=== PATIENT | male | born 1990 | race Caucasian/White ===

== ENCOUNTER 2019-09-14 23:34 | Emergency (ER) | payer BC, MEDICAID ==
[~2019-09-14] VITALS: Ht 185.4 cm; Wt 72.7 kg
[~2019-09-14 23:34] MED LIST: METH500T6 PO
[2019-09-15] MEDS ORDERED: OLANZapine 2.5MG tablet PO STA (00:15)
[2019-09-15] MEDS ORDERED: LORazepam 2 mg/ml vial IM ONE (00:15)
--- NOTE | 2019-09-15 00:19 | NUR ---
PT GOT UP AND WALKED OUT OF ROOM AND HEADED TOWARD THE DOOR - ASKED PT TO RETURN TO ROOM AND TOLD HIM THAT WE WANTED TO HELP HIM AND THAT WE HAD MEDICATIONS FOR HIM. HE APPEARS PARANOID AND IS LOOKING OVER HIS SHOULDER AND HAS JERKY RAPID MOVEMENTS. MD AWARE THAT PT WANTS TO ELOPE. PT WAS APPROACHED BY SECURITY AND AGREES TO COME BACK TO ROOM FOR CARE. MEDICATIONS HAVE BEEN ORDERED AND WILL BE ADMINISTERED TERESA.
[2019-09-15 01:08] LABS: BASOPHILS # (AUTO) 0.1 X10'3 (0-0.2); BASOPHILS % (AUTO) 0.5 % (0-1); EOSINOPHILS # (AUTO) 0.1 X10'3 (0-0.9); EOSINOPHILS % (AUTO) 0.4 % (0-6); HEMATOCRIT 48.6 % (42.0-52.0); HEMOGLOBIN 16.1 g/dl (14.0-17.9); LYMPHOCYTES # (AUTO) 1.7 X10'3 (1.1-4.8); LYMPHOCYTES % (AUTO) 12.5 % (21-51); MEAN CORPUSCULAR HEMOGLOBIN 30.6 PG (27.0-31.0); MEAN CORPUSCULAR HGB CONC 33.2 g/dL (33.0-36.5); MEAN CORPUSCULAR VOLUME 92.1 FL (78-98); MEAN PLATELET VOLUME 7.4 FL (7.4-10.4); MONOCYTES # (AUTO) 1.2 X10'3 (0-0.9); MONOCYTES % (AUTO) 8.9 % (2-12); NEUTROPHILS # (AUTO) 10.2 X10'3 (1.8-7.7); NEUTROPHILS % (AUTO) 77.7 % (42-75); PLATELET COUNT 263 X10'3 (140-440); RED BLOOD COUNT 5.28 X10'6 (4.70-6.10); RED CELL DISTRIBUTION WIDTH 13.4 % (11.5-14.5); WHITE BLOOD COUNT 13.2 X10'3 (4.5-11.0)
--- NOTE | 2019-09-15 01:15 | NUR ---
PATIENT UNABLE TO PARTICPATE IN ASSESSMENT, NOT WILLING/ABLE TO ANSWER QUESTIONS AT THIS TIME
[2019-09-15 01:23] LABS: ALANINE AMINOTRANSFERASE 47 U/L (12-78); ALBUMIN 4.2 G/DL (3.4-5.0); ALBUMIN/GLOBULIN RATIO 1.2 (1.1-1.5); ALKALINE PHOSPHATASE 75 IU/L (46-116); ANION GAP 8 (8-16); ASPARTATE AMINO TRANSFERASE 37 U/L (10-37); BILIRUBIN,TOTAL 0.4 MG/DL (0.1-1.0); BLOOD UREA NITROGEN 10 MG/DL (7-18); BUN/CREATININE RATIO 8.8 (5.4-32.0); CALCIUM 8.9 MG/DL (8.5-10.1); CHLORIDE 105 MMOL/L (99-107); CREATININE 1.13 MG/DL (0.60-1.10); GLUCOSE 102 MG/DL (70-104); POTASSIUM 3.8 MMOL/L (3.5-5.1); SODIUM 141 MMOL/L (135-145); TOTAL CARBON DIOXIDE 28.1 MMOL/L (24-32); TOTAL PROTEIN 7.7 G/DL (6.4-8.2); eGFR 78 ML/MIN
[2019-09-15 01:31] LABS: ETHANOL < 0.010 GM/DL (0.0-0.010)
[2019-09-15 01:36] LABS: ACETAMINOPHEN < 2.0 UG/ML (10-30)
--- NOTE | 2019-09-15 01:43 | NUR ---
RECEIVED REPORT FROM MARIANNA GONSALEZ PATIENT MOVING FROM ROOM 16 TO BED 24 OVERFLOW FOR MENTAL HEALTH EVALUATION
--- NOTE | 2019-09-15 02:00 | NUR ---
PT WOULD NOT ANSWER PAST MEDICAL HX QUESTIONS . WAS ONLY ABLE TO COROPORATE FOR THE BANGOR SUCICIDE SEVERITY RISK QUESTIONIRE
--- NOTE | 2019-09-15 03:03 | NUR ---
PT SLEEPING PEACFULLY IN BED . RR EVEN UNLABORED IN THE DIRECT LINE OF SIGHT OF STAFF WILL CONTINUE TO MONITOR AND REASSESS
--- NOTE | 2019-09-15 03:23 | NUR ---
DIET ORDER FAXED TO DIETARY
--- NOTE | 2019-09-15 04:00 | NUR ---
pt sleepin peacfully supine
--- NOTE | 2019-09-15 04:55 | NUR ---
med rec complete pt sleepin on his right side respirations even and unlabored in amilcar direct line of sight of nursing staff will continue to monitor and reassess
--- NOTE | 2019-09-15 06:17 | NUR ---
REMINDED PATIENT HE NEEDS TO VOID THIS AM FOR UA .PT VERBALIZED " I WILL GO TO THE BATHROOM WHEN I WAKE UP "
--- NOTE | 2019-09-15 06:45 | NUR ---
[facility]VD REPORT FORM [place] [facility], PT IS IN BED, EYES CLOSED, REGULAR BREATHING PRESENT, ASSUMED CARE
--- NOTE | 2019-09-15 07:30 | NUR ---
PT IS SUPINE IN BED, EYES CLOSED, APPEARS TO BE ASLEEP, REGULAR BREATHING OBSERVED, WILL CONTINUE TO MONITOR AND OBTAIN URINE UPON AWAKENING
--- NOTE | 2019-09-15 08:03 | NUR ---
pt is supine in bed, eyes closed, regular breathing present, appears to be asleep, will continue to monitor
--- NOTE | 2019-09-15 08:15 | NUR ---
woke pt up for breakfast, he is slightly dissoriented, began drinking his milk, but has fallen back to sleep
--- NOTE | 2019-09-15 09:22 | NUR ---
pt is supine in bed, asleep, regular breathing observed, will continue to monitor
--- NOTE | 2019-09-15 10:30 | NUR ---
pt is supine in bed , regular breathing observed, still sleeping
--- NOTE | 2019-09-15 11:27 | NUR ---
pt remains supine in bed, regular breathing observed, still sleeping
--- NOTE | 2019-09-15 12:18 | NUR ---
pt continues to sleep, regular breathing present
--- NOTE | 2019-09-15 13:15 | NUR ---
pt is still asleep
--- NOTE | 2019-09-15 14:06 | NUR ---
pt is now awake, eating his lunch, thirsty, obtained water for pt
--- NOTE | 2019-09-15 14:10 | NUR ---
pt mom called transferred it to pt
--- NOTE | 2019-09-15 14:45 | NUR ---
pt is supine, asleep and has regular breathing
[2019-09-15 14:52] LABS: URINE AMPHETAMINE SCREEN POSITIVE (Neg); URINE BARBITUATE SCREEN NEGATIVE (Neg); URINE BENZODIAZEPINES SCREEN NEGATIVE (Neg); URINE CANNABINOID SCREEN NEGATIVE (Neg); URINE COCAINE SCREEN NEGATIVE (Neg); URINE METHADONE SCREEN NEGATIVE (Neg); URINE OPIATE SCREEN NEGATIVE (Neg); URINE PHENCYCLIDINE SCREEN NEGATIVE (Neg)
--- NOTE | 2019-09-15 15:16 | NUR ---
called [facility] to fax packet for pt for mental health eval
--- NOTE | 2019-09-15 15:54 | NUR ---
pt is supine in bed, eyse closed, regular breathing observed
--- NOTE | 2019-09-15 16:06 | NUR ---
Packet faxed to [place] office.
--- NOTE | 2019-09-15 16:53 | NUR ---
[place] office has received packet
--- NOTE | 2019-09-15 16:55 | NUR ---
pt is supine in bed, eyes closed, sleeping
--- NOTE | 2019-09-15 18:52 | NUR ---
Pt sleeping at change of shift. Pt difficult to rouse, in a very deep sleep. Pt does not answer many questions and keeps stating "I'm tired" and declines dinner at this time, choosing to sleep. He states he is "unsure" if he is SI and required initial reorientation to place when woken; but then able to state where he was. Behavior: Sleeping; Mood: "Tired"; Affect: Flat; SI: "Unsure"; Eye Contact: Direct; Insight: Unable to determine.
--- NOTE | 2019-09-15 19:10 | NUR ---
Jennie ( /Home: ), Jeremy' mother called to check in; Pt not wanting to talk due to being fatigued and fell asleep shortly after being woken to be notified of the call.
--- NOTE | 2019-09-15 19:22 | NUR ---
Pt woke to use restroom and eating some dinner.
--- NOTE | 2019-09-15 23:16 | NUR ---
Pt sleeping soundly; no signs of distress. Woke to use restroom a couple times.
--- NOTE | 2019-09-16 02:45 | NUR ---
Pt continues to sleep, no distress noted. Intermittent position changes.
--- NOTE | 2019-09-16 05:10 | NUR ---
Pt sleeping soundly. No distress noted.
--- NOTE | 2019-09-16 08:26 | NUR ---
Discussed obtaining a UA for patient to be evaluated by [facility]. Dr. Pisano stated that the patient has already been medically cleared and that the patient is not having any urinary symptoms so an order does not need to be placed.
--- NOTE | 2019-09-16 08:35 | NUR ---
Patient is difficult to rouse and is offered breakfast, but patient continues to rest in bed peacefully in the supine position. No distress observed.
--- NOTE | 2019-09-16 09:44 | NUR ---
Patient up in bed eating breakfast at this time after speaking with [facility].
--- NOTE | 2019-09-16 09:57 | NUR ---
[facility] back in room to evaluate patient after patient ate breakfast and went to the bathroom.
--- NOTE | 2019-09-16 10:15 | NUR ---
Assumed care of the patient at this time. Pt is sitting in the bed talking with [facility] staff for mental health staff. Pt is cooperative with the staff at this time.
--- NOTE | 2019-09-16 10:45 | NUR ---
Pt is aggitated and wanting to leave the unit. Pt is pacing and acting like he is looking for the exit. Security called and patient back to his bed. Continuing to monitor closely.
[2019-09-16] MEDS ORDERED: LORazepam 2 mg/ml vial IM ONE (11:10)
[2019-09-16] MEDS ORDERED: OLANZapine **IM** 10 mg inj. IM ONE (11:10)
--- NOTE | 2019-09-16 11:30 | NUR ---
Pt became aggitated and wanting to leave. Pt is asking "if I leave how are you going to detain me?" Security and two male staff members to the bedside and assisted the patient back to bed. Dr. Pisano ordered medications to help calm the patient's aggression and aggitation. Estefani Schulz RN has been successful with de-escalation at this time. Pt is agreeable to remaining in the department and reports his anxiety is calmed down. Pt refused the zyprexa and ativan at this time.
--- NOTE | 2019-09-16 11:51 | NUR ---
Patient was redirectable with verbal de-escalation prior to medication administration. Patient is now resting in bed peacefully. His mother, Jennie called and patient is seen talking on the phone appropriately, voice WNL. He prefers to be called "Leif".
--- NOTE | 2019-09-16 12:30 | NUR ---
Pt is resting with even and unlabored respirations. Pt is calm and cooperative with staff at this time.
[2019-09-16] MEDS ORDERED: NICOTINE POLACRILEX 4 MG LOZENGE BC PRN (13:10)
[2019-09-16] MEDS ORDERED: nicotine 21mg patch - 24 hr TD ONE (13:15)
--- NOTE | 2019-09-16 13:29 | NUR ---
Pt is resting with his eyes closed, even and unlabored respirations.
--- NOTE | 2019-09-16 13:54 | NUR ---
Pt awakened, sat up in bed, and ate his lunch without difficulty. Pt remains calm and cooperative at this time.
--- NOTE | 2019-09-16 14:48 | NUR ---
Pt is resting, no distress noted, continuing to monitor.
--- NOTE | 2019-09-16 15:40 | NUR ---
Pt is resting, with even and unlabored respirations. Pt has no distress noted. Pt is awaiting disposition from mental health.
--- NOTE | 2019-09-16 16:02 | NUR ---
[facility] phoned to provide disposition information. She said the patient is accepted to be admitted to [facility] and should be transported to the unit approximately pm, 2100.
--- NOTE | 2019-09-16 17:00 | NUR ---
Pt ambulatory with steady gait to the restroom then back to the bed. Pt is calm and cooperative at this time. Vitals stable.
[2019-09-16 17:10] VITALS: BP 110/71
--- NOTE | 2019-09-16 18:00 | NUR ---
Pt is awake and resting in the bed.
--- NOTE | 2019-09-16 18:32 | NUR ---
Pt is aggitated and questioning the plan of care and the length of time of the 5150 and why he is being held in the ED. Security at the bedside to ensure patient's safety.
[2019-09-17] MEDS ORDERED: NO HOME MEDS (06:40)
== END 2019-09-16 21:17 ==
LOC: ER 23:34
DX: F23 Brief psychotic disorder (principal); F15.10 Other stimulant abuse, uncomplicated; F17.200 Nicotine dependence, unspecified, uncomplicated; Z72.89 Other problems related to lifestyle; Z79.899 Other long term (current) drug therapy
CPT/HCPCS: 36415; 80053; 80305; 80320; 80329; 84443; 85025; 96372; 99285; J2060

== ENCOUNTER 2019-09-16 19:12 | Inpatient (IN) | payer MEDICAID ==
[~2019-09-16] VITALS: Ht 182.9 cm; Wt 81.5 kg
[2019-09-16 22:30] VITALS: BP 111/70
--- NOTE | 2019-09-17 00:44 | NUR ---
NURSING ADMISSION NOTE Pt admitted to [facility] on 09/16/2019 at 2229 from ED. 2 RN skin assessment completed, pt showered. 5150 advisement completed. Belongings inventoried. Pt was brought to ED by mother after he made statements about feeling lost and wanting to jump off of a bridge to end his life. Pt denies current SI, but expresses that he has been feeling confused for the past year. " I met this girl and things just got weird after that, weird things were happening to her now they are happening to me. 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 He also reports having "ringing in my ears, my dad had it too." He also reports hearing female voice say "oh my god" like a whisper for months now.
[2019-09-17] MEDS ORDERED: loperamide 2mg capsule PO PRN (03:35)
[2019-09-17] MEDS ORDERED: mag hydrox/Alum hydrox/simeth 30ml oral suspension PO PRN (03:35)
[2019-09-17] MEDS ORDERED: diphenhydrAMINE 25mg capsule PO PRN (03:35)
[2019-09-17] MEDS ORDERED: magnesium hydroxide 30ml (MOM) UD suspension PO PRN (03:35)
[2019-09-17] MEDS ORDERED: quetiapine 100mg tablet PO PRN (03:35)
[2019-09-17] MEDS ORDERED: traZODone 50mg tablet PO PRN (03:35)
[2019-09-17] MEDS ORDERED: acetaminophen 325mg tablet PO PRN ×2 (03:35)
[2019-09-17] MEDS ORDERED: haloperidol 5mg tablet PO PRN (03:35)
[2019-09-17] MEDS ORDERED: LORazepam 1 MG tablet PO PRN ×2 (03:35)
[2019-09-17] MEDS ORDERED: NO HOME MEDS (06:40)
[2019-09-17 08:00] VITALS: BP 97/57
[2019-09-17] MEDS: nicotine 21mg patch - 24 hr TD SCH (08:31)
--- NOTE | 2019-09-17 17:34 | NUR ---
Nursing Progress Note: Legal hold: 5150 Client on involuntary status for DTS. Report received from nurse with use of SBAR. Why are they here: Pt was brought to ED by mother after he made statements about feeling lost and wanting to jump off of a bridge to end his life. Pt denies current SI, but expresses that he has been feeling confused for the past year. " I met this girl and things just got weird after that, weird things were happening to her now they are happening to me. 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 He also reports having "ringing in my ears, my dad had it too." He also reports hearing female voice say "oh my god" like a whisper for months now. Assessment What has happened this shift: Received pt sleeping in bed at shift change. Pt. Awakens for breakfast. Patient states that he really does not remember what happened prior to coming to [facility]. He believes that he made some suicidal statements, and that his mother brought him to the hospital. Patient denies SI/HI. AVH, but states that he was hearing voices prior to coming to the hospital. The patient states that since he has been here he has started dreaming again. Patient states that he lives alone in an apartment, but when he leaves he will move back in with his parents, as he does not currently have a job. S/I, H/I: Not at all. A/VH: Denies. Sleep: 5.0 hrs NOC. Napped during daytime. ADL's: Independent. Group attendance: No. Were meds taken: Yes Any med S/E: None noted. Mental Status Exam Appearance: Disheveled. Eye contact: Good. Behavior: Withdrawn and isolative. Calm, cooperative. Speech: Clear, normal rate and volume. Mood: Depressed. Affect: Flat. Thought process: Circumstantial. Thought Content: Pt. Requests to be discharged early. Cognition: Alert Insight: Poor. Judgment: Poor. Interventions PRN's used: None. Therapeutic interventions: 1:1 assessment, therapeutic conversation, active listening, maintained a safe and therapeutic environment, monitored behaviors and need for intervention, encouragement to perform personal hygiene, Q 15 min safety checks. Restraints/seclusion/emergency medication: NA Justification of Continued Inpatient Treatment: Pt. requires interruption of current crisis, medication adjustments and a safe and therapeutic environment.
[2019-09-17 19:54] VITALS: BP 128/81
--- NOTE | 2019-09-18 03:38 | NUR ---
Nursing Progress Note: Legal hold: 5150 Client on involuntary status for DTS. Report received from NANNETTE Savage, with use of SBAR. Why are they here: Pt was brought to ED by mother after he made statements about feeling lost and wanting to jump off of a bridge to end his life. Pt denies current SI, but expresses that he has been feeling confused for the past year. " I met this girl and things just got weird after that, weird things were happening to her now they are happening to me. 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 He also reports having "ringing in my ears, my dad had it too." He also reports hearing female voice say "oh my god" like a whisper for months now. Assessment What has happened this shift: Patient observed in bed and talking on the phone at the beginning of shift. Patient was [place] the [place] and he repoted, "I feel much better now. I needed that." Patient is pleasant and cooperative with care; No scheduled medications or PRNs this shift. Patient denies SI, HI, A/VH. He reported D/C plan is to discharge to [facility], and reports looking forward to it. Denied anxiety, denies pain. Patient remained in bed throughout the shift. S/I, H/I: Denies A/VH: Denies. Sleep: Refer to sleep assessment ADL's: Independent. Group attendance: No groups this shift Were meds taken: Yes Any med S/E: None reported or observed Mental Status Exam Appearance: Disheveled, appropriate attire. Eye contact: Good Behavior: Isolative Speech: Clear, audible, normal rate and volume Mood: Depressed Affect: Flat Thought process: Circumstantial. Thought Content: Pt. Requests to be discharged early. Cognition: Alert Insight: Poor. Judgment: Poor. Interventions PRN's used: None. Therapeutic interventions: 1:1 assessment, therapeutic conversation, active listening, maintained a safe and therapeutic environment, monitored behaviors and need for intervention, encouragement to perform personal hygiene, Q 15 min safety checks. Restraints/seclusion/emergency medication: NA Justification of Continued Inpatient Treatment: Pt. requires interruption of current crisis, medication adjustments and a safe and therapeutic environment.
[2019-09-18 07:50] VITALS: BP 109/58
[2019-09-18] MEDS: nicotine 21mg patch - 24 hr TD SCH (08:29)
[2019-09-18 08:46] LABS: BASOPHILS % (AUTO) 0.6 % (0-1); EOSINOPHILS # (AUTO) 0.1 X10'3 (0-0.9); EOSINOPHILS % (AUTO) 1.3 % (0-6); HEMATOCRIT 50.8 % (42.0-52.0); HEMOGLOBIN 16.9 g/dl (14.0-17.9); LYMPHOCYTES # (AUTO) 1.3 X10'3 (1.1-4.8); LYMPHOCYTES % (AUTO) 18.3 % (21-51); MEAN CORPUSCULAR HEMOGLOBIN 30.6 PG (27.0-31.0); MEAN CORPUSCULAR HGB CONC 33.3 g/dL (33.0-36.5); MEAN PLATELET VOLUME 7.5 FL (7.4-10.4); MONOCYTES # (AUTO) 0.5 X10'3 (0-0.9); NEUTROPHILS # (AUTO) 5.2 X10'3 (1.8-7.7); NEUTROPHILS % (AUTO) 72.8 % (42-75); PLATELET COUNT 249 X10'3 (140-440); RED BLOOD COUNT 5.52 X10'6 (4.70-6.10); RED CELL DISTRIBUTION WIDTH 13.3 % (11.5-14.5); WHITE BLOOD COUNT 7.1 X10'3 (4.5-11.0)
[2019-09-18 08:55] LABS: ALBUMIN 3.7 G/DL (3.4-5.0); ANION GAP 6 (8-16); BLOOD UREA NITROGEN 11 MG/DL (7-18); BUN/CREATININE RATIO 13.8 (5.4-32.0); CALCIUM 8.7 MG/DL (8.5-10.1); CHLORIDE 105 MMOL/L (99-107); CHOL/HDL RATIO 3.6 (0.00-4.99); CHOLESTEROL 124 MG/DL (0-200); GLUCOSE 89 MG/DL (70-104); HDL CHOLESTEROL 34 MG/DL (35-60); LDL CHOLESTEROL 81 MG/DL (50-100); POTASSIUM 5.6 MMOL/L (3.5-5.1); SODIUM 137 MMOL/L (135-145); TOTAL CARBON DIOXIDE 26.5 MMOL/L (24-32); TRIGLYCERIDES 54 MG/DL (20-135); eGFR > 90 ML/MIN
[2019-09-18 09:10] LABS: HEMOGLOBIN A1C 5.5 % (4.5-6.2)
--- NOTE | 2019-09-18 16:33 | NUR ---
Nursing Progress Note: Legal hold: 5150 Client on involuntary status for DTS. Report received from Akanksha with use of SBAR. Why are they here: Pt was brought to ED by mother after he made statements about feeling lost and wanting to jump off of a bridge to end his life. Pt denies current SI, but expresses that he has been feeling confused for the past year. " I met this girl and things just got weird after that, weird things were happening to her now they are happening to me. 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 He also reports having "ringing in my ears, my dad had it too." He also reports hearing female voice say "oh my god" like a whisper for months now. Assessment What has happened this shift: Patient sleeping in bed at shift change. Patient attends morning patio group. Reports that he does not feel suicidal and would like to know if [facility] might let him go today. He states that it is like night and day, the way he felt before coming in and now being off drugs for two days, he no longer feels confused or suicidal. Patient denies AVH. Reports that he can go to the [facility] after he is discharged. S/I, H/I: Denies. A/VH: Denies. Sleep: Napped. ADL's: Independent. Group attendance: Yes, outside group. Were meds taken: Yes Any med S/E: None noted. Mental Status Exam Appearance: Clean and neat in unit attire. Eye contact: Good. Behavior: Withdrawn and isolative. Calm, cooperative. Speech: Clear, normal rate and volume. Mood: Depressed. Affect: Flat. Thought process: Linear. Thought Content: Pt. Requests to be discharged early. Cognition: Alert Insight: Poor. Judgment: Poor. Interventions PRN's used: None. Therapeutic interventions: 1:1 assessment, therapeutic conversation, active listening, maintained a safe and therapeutic environment, monitored behaviors and need for intervention, encouragement to perform personal hygiene, Q 15 min safety checks. Restraints/seclusion/emergency medication: NA Justification of Continued Inpatient Treatment: Pt. requires interruption of current crisis, medication adjustments and a safe and therapeutic environment.
[2019-09-18 19:47] VITALS: BP 108/59
--- NOTE | 2019-09-19 03:29 | NUR ---
Nursing Progress Note: Legal hold: 5150 Client on involuntary status for DTS. Report received from NANNETTE Savage, with use of SBAR. Why are they here: Pt was brought to ED by mother after he made statements about feeling lost and wanting to jump off of a bridge to end his life. Pt denies current SI, but expresses that he has been feeling confused for the past year. " I met this girl and things just got weird after that, weird things were happening to her now they are happening to me. 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 He also reports having "ringing in my ears, my dad had it too." He also reports hearing female voice say "oh my god" like a whisper for months now. Assessment What has happened this shift: Patient in his bedroom where he remained throughout this shift. Pleasant and cooperative with care. Denies SI, HI, A/VH. Patient did not express any delusional or paranoid thoughts this shift but appears guarded; he answers radio script writer's questions with short answers. Patient continues to report he'll be going to [place] post discharge and expressed his parents are a good support system. PRN Trazodone upon request with positive effect. S/I, H/I: Denies A/VH: Denies. Sleep: Refer to sleep assessment ADL's: Independent. Group attendance: No groups this shift Were meds taken: Yes Any med S/E: None reported or observed Mental Status Exam Appearance: Disheveled, appropriate attire. Eye contact: Good Behavior: Isolative Speech: Clear, audible, minimal Mood: Depressed Affect: Constricted Thought process: Poverty of thought Thought Content: Unable to assess Cognition: Alert Insight: Fair Judgment: Poor Interventions PRN's used: Trazodone Therapeutic interventions: 1:1 assessment, therapeutic conversation, active listening, maintained a safe and therapeutic environment, monitored behaviors and need for intervention, encouragement to perform personal hygiene, Q 15 min safety checks. Restraints/seclusion/emergency medication: NA Justification of Continued Inpatient Treatment: Pt. requires interruption of current crisis, medication adjustments and a safe and therapeutic environment.
[2019-09-19 08:00] VITALS: BP 104/62
[2019-09-19] MEDS: nicotine 21mg patch - 24 hr TD SCH (08:08)
--- NOTE | 2019-09-19 10:00 | NUR ---
Group Therapy: Process Group This Clinicians goal for this process group were as follows: (1) Ask scaling questions about Patients current anxiety, depression, and irritability symptoms as a check-in. (2) Review the concept of emotional and situational triggers as it relates to potential onsets of maladaptive episodes of emotional escalation. (3) Review the concept of thought-stopping, and thought-reframing as interventions to stop unhelpful/irrational thinking processes. (4) Provide psychoeducation on mindfulness as a principle that can assist in reducing maladaptive symptoms of emotional escalation. (5) Process Clients thoughts and reflections on this topic within the group milieu. Patient identified experiencing the following levels of anxiety, depression, and anger/irritability while present in the group milieu. Anxiety: 05/30 Depression: 04/29 Anger irritability: 04/29 Patient presented as open and cooperative within the group milieu. Patient was dressed in [facility] scrubs. He presented as slightly disheveled with unkempt hair. Patient presented as quiet and subdued within the group milieu. Occasionally, he christy his hand with several of the other group members when asked by this Clinician if he identified with any of the thoughts, feelings, and/or actions that led to increased emotional escalation. Patient presented as unobtrusive within the process group and appeared, per this Clinician's impression, to pay attention to the material being discussed AEB sustained eye contact with this Clinician. Douglas Monreal MA, ARLEEN Addendum: 09/20/19 at 0817 by Douglas Monreal SS Amended: Links added.
--- NOTE | 2019-09-19 14:11 | NUR ---
DCP Presenting Issues: Attend PA requesting dcp services for pt tro facilitate d/c. Interventions: SS met w/pt and engaged him in dcp activities. Per session, pt informed SS that he will return to his mom's home and plans to access [facility] outpatient services. SS provided education about available drug & alcohol services in the community. SS had t/c with pt's mother, per t/c pt mother is not ready for pt to go to her home yet and request d/c for tomorrow. Plan: SS will discuss voluntary stay with pt and consult w/PA. Ashlee Galeas LCSW Addendum: 09/19/19 at 1437 by Ashlee Galeas Amended: Links added.
--- NOTE | 2019-09-19 17:40 | NUR ---
safety patrol officer Note: Patient was given discharge instructions. Patient verbalized understanding. Patient denies suicidal/homicidal ideation. Patient refused to stay an additional day as a voluntary patient as patient did not want to go live with his mother. Mother had told RN that the apartment management where patient stayed did not want him back due to his bad behavior. RN gave patient a phone to call his friend to pick him up. Patient stated he would call his friend from his cell phone after he left. Patient left with all his belongings, ball and valuables. Patient happy to be leaving. [facility] walked patient downstairs to the lobby. Patient ambulatory, steady gait.
== END 2019-09-19 17:39 | disposition home or self-care (01) | DRG 776 ==
LOC: ADULT MH 21:37
PROVIDERS: ADMIT Psychiatry & Neurology Psychiatry; ATTEND Psychiatry & Neurology Psychiatry
DX: F15.159 Other stimulant abuse with stimulant-induced psychotic disorder, unspecified (principal); R45.851 Suicidal ideations; F17.200 Nicotine dependence, unspecified, uncomplicated; Z71.6 Tobacco abuse counseling; Z83.3 Family history of diabetes mellitus; F32.9 Major depressive disorder, single episode, unspecified; D72.829 Elevated white blood cell count, unspecified; Z79.899 Other long term (current) drug therapy
CPT/HCPCS: 36415; 80048; 80061; 83036; 84132; 85025; 87081

== ENCOUNTER 2019-11-08 19:50 | Emergency (ER) | payer MEDICAID ==
[~2019-11-08] VITALS: Ht 182.9 cm; Wt 80.0 kg
[~2019-11-08 19:50] MED LIST changes: -METH500T6 PO; +NO HOME MEDS
[2019-11-08 21:28] LABS: BASOPHILS % (AUTO) 0.4 % (0-1); EOSINOPHILS # (AUTO) 0.1 X10'3 (0-0.9); EOSINOPHILS % (AUTO) 0.6 % (0-6); HEMATOCRIT 49.6 % (42.0-52.0); HEMOGLOBIN 16.7 g/dl (14.0-17.9); LYMPHOCYTES # (AUTO) 1.6 X10'3 (1.1-4.8); LYMPHOCYTES % (AUTO) 19.8 % (21-51); MEAN CORPUSCULAR HEMOGLOBIN 30.8 PG (27.0-31.0); MEAN CORPUSCULAR HGB CONC 33.7 g/dL (33.0-36.5); MEAN CORPUSCULAR VOLUME 91.3 FL (78-98); MEAN PLATELET VOLUME 7.7 FL (7.4-10.4); MONOCYTES # (AUTO) 0.6 X10'3 (0-0.9); MONOCYTES % (AUTO) 7.3 % (2-12); NEUTROPHILS # (AUTO) 5.8 X10'3 (1.8-7.7); NEUTROPHILS % (AUTO) 71.9 % (42-75); PLATELET COUNT 245 X10'3 (140-440); RED BLOOD COUNT 5.43 X10'6 (4.70-6.10); RED CELL DISTRIBUTION WIDTH 13.9 % (11.5-14.5); WHITE BLOOD COUNT 8.1 X10'3 (4.5-11.0)
[2019-11-08 21:41] LABS: ALANINE AMINOTRANSFERASE 38 U/L (12-78); ALBUMIN 4.2 G/DL (3.4-5.0); ALBUMIN/GLOBULIN RATIO 1.2 (1.1-1.5); ANION GAP 7 (8-16); ASPARTATE AMINO TRANSFERASE 20 U/L (10-37); BILIRUBIN,TOTAL 0.5 MG/DL (0.1-1.0); BLOOD UREA NITROGEN 7 MG/DL (7-18); BUN/CREATININE RATIO 6.6 (5.4-32.0); CALCIUM 9.2 MG/DL (8.5-10.1); CHLORIDE 105 MMOL/L (99-107); CREATININE 1.06 MG/DL (0.60-1.10); GLUCOSE 94 MG/DL (70-104); POTASSIUM 3.3 MMOL/L (3.5-5.1); SODIUM 141 MMOL/L (135-145); TOTAL CARBON DIOXIDE 28.8 MMOL/L (24-32); TOTAL PROTEIN 7.6 G/DL (6.4-8.2); eGFR 84 ML/MIN
[2019-11-08 21:42] LABS: ACETAMINOPHEN < 2.0 UG/ML (10-30); ALKALINE PHOSPHATASE 60 IU/L (46-116); ETHANOL < 0.010 GM/DL (0.0-0.010)
[2019-11-08] MEDS ORDERED: LORazepam 1 MG tablet PO ONE (22:15)
--- NOTE | 2019-11-08 22:30 | NUR ---
The patient was moved from the main ER to bed #25 on a 179 written for gravely disabled. He presented as restless and disorganized. He denies voices but appears distracted and has a delay in his responses. He reports last meth use was tonight then stated it was yesterday. He was requested to give a urine sample. He reports he has only been sleeping 3-4 hours per night. He was able to accurately state the day, date and year. When asked where he would live if he were discharged from the ER and he stated, "with my parents?" The patient was cooperative with the unit routine.
[2019-11-08 22:36] LABS: CLARITY,URINE CLEAR (Clear); COLOR,URINE YELLOW (Yellow); GLUCOSE, URINE NEGATIVE (Neg); KETONES,URINE NEGATIVE (Neg); LEUKOCYTE ESTERASE ,URINE NEGATIVE (Neg); NITRITES, URINE NEGATIVE (Neg); OCCULT BLOOD,URINE NEGATIVE (Neg); PROTEIN,URINE NEGATIVE (Neg); UROBILINOGEN,URINE 0.2 E.U/dL (0.2-1.0)
[2019-11-08 22:37] LABS: UA COLLECTION TYPE CLN CATCH MIDSTREAM
[2019-11-08 22:44] LABS: URINE AMPHETAMINE SCREEN POSITIVE (Neg); URINE BARBITUATE SCREEN NEGATIVE (Neg); URINE BENZODIAZEPINES SCREEN NEGATIVE (Neg); URINE CANNABINOID SCREEN NEGATIVE (Neg); URINE COCAINE SCREEN NEGATIVE (Neg); URINE METHADONE SCREEN NEGATIVE (Neg); URINE OPIATE SCREEN NEGATIVE (Neg); URINE PHENCYCLIDINE SCREEN NEGATIVE (Neg)
--- NOTE | 2019-11-08 23:59 | NUR ---
The patient appears to be sleeping
--- NOTE | 2019-11-09 03:09 | NUR ---
The patient appears to be sleeping
--- NOTE | 2019-11-09 04:26 | NUR ---
Pt awake and asking when breakfast is and about the hold process. Jere Patricia, explaining the process. Pt appears restless, but is cooperative and staying in his room area.
--- NOTE | 2019-11-09 04:44 | NUR ---
Pt remains awake, now standing at the foot of his bed.
--- NOTE | 2019-11-09 04:46 | NUR ---
Ambulating to BR to void.
--- NOTE | 2019-11-09 05:12 | NUR ---
Pt continues to stand by his bed with arms folded. Given a blanket as he said he was cold. Asked if he wanted meds to help him settle and to sleep and reminded he got ativan 6 hr ago and he did sleep a few hrs after that. Answered, "i dont know".
--- NOTE | 2019-11-09 05:18 | NUR ---
Dr. Schmidt updated the Pt is restless. Verbal received for Ativan 1 mg po x1 now.
[2019-11-09] MEDS: LORazepam 1 MG tablet PO ONE ×2 (05:25→05:28)
--- NOTE | 2019-11-09 05:28 | NUR ---
Pt given the ativan tablet and took a sip of water and took the pill cup and then said, "no , i don't need it, thank you".
--- NOTE | 2019-11-09 05:34 | NUR ---
PT WANDERING THE UNIT WITH BLANKET OVER HIS SHOUDERS. ASKING ME REPEATEDLY "WHATS YOUR NAME", "ARE YOU ", AND MUMBLES OTHER SHORT SENTENCES. VSS, WHEN TAKING VS, HE WAS GRABBING AT THE BP CUFF TRYING TO TAKE IT OFF WHILE IT WAS PUMPING UP. I TOLD HIM HE SHOULD CONSIDER TAKING THE TABLET OF ATIVAN. THOUGHT PROCESSES DISTURBED AND DOES NOT SEEM TO UNDERSTAND WHAT I AM SAYING. TOLD HE NEEDS TO STAY IN HIS ROOM NOW AND NOT WANDER THE UNIT. HE IS COOPERATIVE AND NOW SITTING AT THE END OF HIS BED.
--- NOTE | 2019-11-09 06:30 | NUR ---
pt is sitting on his bed starring at staff
[2019-11-09] MEDS ORDERED: LORazepam 2 mg/ml vial IM ONE (07:20)
[2019-11-09] MEDS ORDERED: diphenhydrAMINE 50 mg/ml inj IM ONE (07:20)
[2019-11-09] MEDS ORDERED: haloperidol lactate 5mg/ml inj IM ONE (07:20)
--- NOTE | 2019-11-09 07:30 | NUR ---
pt is walking around. pt keeps walking past the screens. staff is redirecting pt to return to his bed.
--- NOTE | 2019-11-09 08:35 | NUR ---
pt was given im med cause pt could not comply with staying in the allowed areas and kept heading towards to the doors
--- NOTE | 2019-11-09 08:36 | NUR ---
mother called. pt is going to [facility] when released
--- NOTE | 2019-11-09 09:13 | NUR ---
BREAKING PRIMARY RN, PT IS SUPINE IUN BED SLEEPING, REGULAR BREATHING OBSERVED, WILL CONT TO MONITOR
--- NOTE | 2019-11-09 10:45 | NUR ---
breaking primary rn, pt is sleeping supine in bed, regular breathing present, will cont to monitor
--- NOTE | 2019-11-09 12:00 | NUR ---
pt is sleeping. no concerns
--- NOTE | 2019-11-09 13:43 | NUR ---
Breaking primary RN, pt is supine in bed, sleeping, regular breathing present, will continue to monitor
--- NOTE | 2019-11-09 14:00 | NUR ---
pt is sleeping. no concerns
--- NOTE | 2019-11-09 15:00 | NUR ---
pt is sleeping. no concerns
--- NOTE | 2019-11-09 16:00 | NUR ---
pt is sleeping. no concerns
--- NOTE | 2019-11-09 17:00 | NUR ---
pt is sleeping. no concerns
--- NOTE | 2019-11-09 18:00 | NUR ---
pt is sleeping. no concerns
--- NOTE | 2019-11-09 18:45 | NUR ---
Patient's mother called for update. Berny from [facility] talked to her.
--- NOTE | 2019-11-09 19:15 | NUR ---
Per Berny from [facility], he was unable to assess patient due to patient being sedated. Current 1798 to @2202, per Tera Peña, he will extend 1798.
--- NOTE | 2019-11-09 21:18 | NUR ---
Breaking primary rnBonnie. Pt sleeping, lying on his back with blankets covering to his shouders. RR 12 and unlabored. Sitter and RN within view of Pt aat.
[2019-11-10 05:59] VITALS: BP 102/64
--- NOTE | 2019-11-10 05:59 | NUR ---
Patient resting in bed, calm, asked if he needed to use restroom as he has not been to the restroom all night, stated "nah, I'm good".
--- NOTE | 2019-11-10 06:41 | NUR ---
pt is sleeping. no concerns at this time
--- NOTE | 2019-11-10 07:30 | NUR ---
pt is sleeping
--- NOTE | 2019-11-10 08:30 | NUR ---
[facility] attempted to talk with the patient. pt opens his eye but just looks at staff. pt makes no attempt to response to questions he just closes his eyes and rolls over
--- NOTE | 2019-11-10 09:33 | NUR ---
pt spoke with [facility]. pt will be going to [facility] when dc
--- NOTE | 2019-11-10 10:14 | NUR ---
mother is on her way to take pt to [facility]. just received discharge paperwork
== END 2019-11-10 11:47 | disposition home or self-care (01) ==
LOC: ER 19:51
DX: F15.90 Other stimulant use, unspecified, uncomplicated (principal); F29 Unspecified psychosis not due to a substance or known physiological condition; Z72.89 Other problems related to lifestyle
CPT/HCPCS: 36415; 80053; 80305; 80320; 80329; 81003; 85025; 96372; 99284; J1200; J1630; J2060; 99285

== ENCOUNTER 2020-05-17 16:22 | Emergency (ER) | payer MEDICAID ==
[~2020-05-17] VITALS: Ht 185.4 cm; Wt 81.8 kg
[2020-05-17 16:36] VITALS: BP 122/76
--- NOTE | 2020-05-17 16:39 | NUR ---
Patient seen and assessed by provider.
== END 2020-05-17 16:39 | disposition home or self-care (01) ==
LOC: ER 16:22
DX: S60.311A Abrasion of right thumb, initial encounter (principal); F10.129 Alcohol abuse with intoxication, unspecified; F17.200 Nicotine dependence, unspecified, uncomplicated; F15.90 Other stimulant use, unspecified, uncomplicated; Z72.89 Other problems related to lifestyle; V89.2XXA Person injured in unspecified motor-vehicle accident, traffic, initial encounter; Y93.89 Activity, other specified; Y92.89 Other specified places as the place of occurrence of the external cause; Y99.8 Other external cause status; Y90.9 Presence of alcohol in blood, level not specified
CPT/HCPCS: 99283

== ENCOUNTER 2023-05-17 12:13 | Emergency (ER) | payer MEDICAID ==
[~2023-05-17] VITALS: Ht 185.4 cm; Wt 94.3 kg
[2023-05-17 12:23] VITALS: BP 148/88; PULSE 142; RESP 18; TEMP 98.5; O2SAT 97
[2023-05-17] MEDS ORDERED: CHLO25CA10 PO ×2 (12:30→12:31)
[2023-05-17] MEDS ORDERED: NALT50TA PO (12:30)
[2023-05-17] MEDS ORDERED: ONDA4TAB12 PO (12:34)
== END 2023-05-17 13:11 | disposition home or self-care (01) ==
LOC: ER 12:14
DX: F10.139 Alcohol abuse with withdrawal, unspecified (principal); F10.10 Alcohol abuse, uncomplicated; Y90.9 Presence of alcohol in blood, level not specified; Z87.891 Personal history of nicotine dependence; Z79.899 Other long term (current) drug therapy
CPT/HCPCS: 99283

== ENCOUNTER 2023-08-08 09:34 | Emergency (ER) | payer MEDICAID ==
[~2023-08-08] VITALS: Ht 185.4 cm; Wt 96.0 kg
[~2023-08-08 09:34] MED LIST changes: +CHLO25CA10 PO; +NALT50TA PO; +ONDA4TAB12 PO
[2023-08-08] MEDS ORDERED: GABA300C PO (10:48)
[2023-08-08 11:02] VITALS: BP 113/69; PULSE 75; RESP 16; TEMP 97.8; O2SAT 97
== END 2023-08-08 11:06 | disposition home or self-care (01) ==
LOC: ER 09:35
DX: G56.22 Lesion of ulnar nerve, left upper limb (principal); Z79.899 Other long term (current) drug therapy
CPT/HCPCS: 99283

== ENCOUNTER 2024-01-14 19:35 | Emergency (ER) | payer MEDICAID ==
[~2024-01-14] VITALS: Ht 185.4 cm; Wt 93.0 kg
[~2024-01-14 19:35] MED LIST changes: +GABA300C PO; -NALT50TA PO; +NALT50TA5 PO; +ONDA-243 PO; +ONDA-245 PO; -ONDA4TAB12 PO
[2024-01-14] MEDS ORDERED: LIDOcaine 4% (40 mg/ml) topical solution 50ml TP STA (21:04)
[2024-01-14 21:23] VITALS: BP 125/87; PULSE 97; RESP 14; TEMP 98.3; O2SAT 99
[2024-01-14] MEDS: proparacaine 0.5% ophthalmic drops 15ml EACHEYE STA (21:45)
[2024-01-14] MEDS ORDERED: COROS RIGHTEYE (22:26)
== END 2024-01-14 22:33 | disposition home or self-care (01) ==
LOC: ER 19:36
DX: S05.31XA Ocular laceration without prolapse or loss of intraocular tissue, right eye, initial encounter (principal); H20.9 Unspecified iridocyclitis; F10.90 Alcohol use, unspecified, uncomplicated; Z79.899 Other long term (current) drug therapy; X58.XXXA Exposure to other specified factors, initial encounter; Y93.89 Activity, other specified; Y92.89 Other specified places as the place of occurrence of the external cause; Y99.8 Other external cause status
CPT/HCPCS: 99283

== ENCOUNTER 2024-02-25 20:09 | Emergency (ER) | payer MEDICAID ==
[~2024-02-25] VITALS: Ht 182.9 cm; Wt 79.5 kg
[~2024-02-25 20:09] MED LIST changes: +COROS RIGHTEYE
[2024-02-25 20:14] VITALS: BP 143/95; PULSE 132; RESP 19; TEMP 98; O2SAT 98
== END 2024-02-25 21:13 ==
LOC: ER 20:10
DX: S61.317D Laceration without foreign body of left little finger with damage to nail, subsequent encounter (principal); F10.90 Alcohol use, unspecified, uncomplicated; Z79.899 Other long term (current) drug therapy; W18.39XD Other fall on same level, subsequent encounter
CPT/HCPCS: 99283

== ENCOUNTER 2024-02-28 16:58 | Emergency (ER) | payer MEDICAID ==
[~2024-02-28] VITALS: Ht 185.4 cm; Wt 91.5 kg
[2024-02-28 17:07] VITALS: BP 125/75; PULSE 114; RESP 20; O2SAT 96
[2024-02-28] MEDS: TETanus/Pertussis (Acell)/Diphther VAC/PF (Tdap-Adult) 0.5ml syringe IMVAC ONE (18:22)
[2024-02-28] MEDS: LIDOcaine 1% 30ml preserv. free vial IJ STA (18:28)
[2024-02-28] MEDS ORDERED: HYDR-3965 PO (18:34)
[2024-02-28] MEDS ORDERED: CEPH-585 PO (18:34)
[2024-02-28] MEDS: ceFAZolin 1gm IM kit IM ONE (18:40)
[2024-02-28 18:58] VITALS: TEMP 98.3
== END 2024-02-28 19:01 | disposition home or self-care (01) ==
LOC: ER 16:59
DX: S61.306A Unspecified open wound of right little finger with damage to nail, initial encounter (principal); Z79.2 Long term (current) use of antibiotics; Z79.899 Other long term (current) drug therapy; W23.0XXA Caught, crushed, jammed, or pinched between moving objects, initial encounter; Y93.89 Activity, other specified; Y92.89 Other specified places as the place of occurrence of the external cause; Y99.8 Other external cause status
CPT/HCPCS: 11730; 73140; 90471; 90715; 96372; 99284; A6222; J0690

== ENCOUNTER 2024-03-30 15:11 | Emergency (ER) | payer MEDICAID ==
[~2024-03-30] VITALS: Ht 185.4 cm; Wt 85.9 kg
[~2024-03-30 15:11] MED LIST changes: +HYDR-3965 PO
[2024-03-30 15:15] VITALS: BP 142/92; PULSE 110; RESP 18; TEMP 98.5; O2SAT 99
[2024-03-30] MEDS ORDERED: HYDR-3686 PO (17:42)
== END 2024-03-30 18:01 | disposition home or self-care (01) ==
LOC: ER 15:11
DX: F41.9 Anxiety disorder, unspecified (principal); F17.200 Nicotine dependence, unspecified, uncomplicated; Z79.899 Other long term (current) drug therapy
CPT/HCPCS: 99283

== ENCOUNTER 2024-08-24 11:39 | Emergency (ER) | payer MEDICAID ==
[~2024-08-24] VITALS: Ht 185.4 cm; Wt 95.5 kg
[~2024-08-24 11:39] MED LIST changes: +HYDR-3686 PO; -HYDR-3965 PO
--- NOTE | 2024-08-24 12:14 | ELECTROCARDIOGRAPH REPORT ---
[facility] Test Date: 2024-08-24 Test Time: 12:12:30 Pat Name: JOSIE [facility] Department: [facility]- Patient ID: [facility]-[id number] Room: Gender: M Sane Nurse: : 1990 Requested By: NANCY DODD Order Number: [id number] Reading MD: Dr. Cheng Bansal Measurements Intervals [place] Rate: 129 P: 54 TX: 123 QRS: 70 QRSD: 101 T: 26 QT: 307 QTc: 450 Interpretive Statements Sinus tachycardia Electronically Signed On 08-24-2024 15:47:[address] Cheng Bansal Please click the below link to view image of tracing.
[2024-08-24] MEDS ORDERED: LORazepam 2 mg/ml vial IV STA (12:58)
--- NOTE | 2024-08-24 13:03 | Physician Documentation ---
History of Present Illness ~ Chief Complaint: Overdose Stated Complaint: DOC NOTE Time Seen by MD: 12:21 Primary Medical Doctor: NONE HPI Patient is seen today with complaints of fentanyl overdose about 13 hours ago last night around 10 or 11. Patient states his girlfriend was present and states he blacked out and stopped breathing for about 2 minutes after which she used Narcan nasal spray x2 and he woke up and started breathing again after about 30 seconds. Patient's girlfriend states he did turn a little blue. Patient does admit to significant alcohol use and has been in and out of alcohol recovery for years. Patient states he usually drinks in the morning unless he works but states he does usually have alcohol withdrawal symptoms every morning including elevated heart rate and sometimes a little shaky. Patient states his last drink was last night over 12 hours ago. Patient does admit to nausea currently and states he is usually a little nauseous each morning. Patient has no other concern or complaint at this time. He denies any chest pain or shortness of breath or abdominal pain or vomiting or diarrhea. Medication Reconciliation Allergies: Coded Allergies: No Known Allergies (Unverified , 08/24/24) Scheduled Gabapentin (Neurontin), 1 CAP PO QHS Hydroxyzine Hcl (Atarax), 1-2 TAB PO Q8H Naltrexone Hcl (Naltrexone Hcl), 1 TAB PO DAILY Neomy Sulf/Polymyx B Sulf/Hc (Npgvvznv-Ultt-Fj Eye Drops), 1 DROP RIGHTEYE Q6H ONDANSETRON ODT 4mg tablet (Ondansetron Odt), 4 MG PO BID Ondansetron 8mg ODT (Ondansetron Odt), 1 TAB PO Q6H Scheduled PRN Chlordiazepoxide HCl (Chlordiazepoxide HCl), 1 CAP PO TID PRN for ALCOHOL WITHDRAWAL Chlordiazepoxide Hcl (Librium), 2 CAP PO Q6H PRN for anxiety Chlordiazepoxide Hcl (Librium), 2 CAP PO Q2H PRN PRN for anxiety ONDANSETRON ODT 4mg tablet (Ondansetron Odt), 1 TAB PO Q6H PRN PRN for nausea/vomiting Miscellaneous Medications Home Med List (No Home Medications), (Reported) Past Medical History Past Medical History: No Pertinent History Past Surgical History: no surgical history Alcohol Use: Alcoholic Lives with: Family Lives In: Home Occupation: employed Review of Systems Constitutional: Denies: chills, fever, weakness Eyes: Denies: pain, blurred vision ENT: Denies: ear pain, nose pain, throat pain, mouth pain Respiratory: Denies: cough, shortness of breath Cardiovascular: Denies: chest pain, palpitations Gastrointestinal: Denies: abdominal pain, nausea, vomiting Genitourinary: Denies: burning, dysuria Male Genitalia: Denies: penile discharge, testicular pain Neurological: Denies: headache, dizziness Musculoskeletal: Denies: pain, swelling Integumentary: Denies: rash, lesions Allergic/Immunologic: Denies: hives, itching Hematologic/Lymphatic: Denies: no symptoms reported Psychiatric: Denies: depression, anxiety Physical Exam Vital Signs: Temperature: 97.3, Source: Oral, Heart Rate: 125, Respiratory Rate: 18, BP: 109/85, Pulse Oximetry: 97, Weight: 95.450 Oxygen Flow Rate: 0 Physical Exam General: Awake and Alert, no acute distress. HEENT: Conjunctiva pink, Sclera clear, Mucus Membranes moist. Neck: Supple without masses and tenderness. Resp: Unlabored. Lungs clear to auscultation bilaterally. Heart: Tachycardic Rate and regular/normal sinus rhythm, normal S1 and S2 without murmur, rub or gallop. Abdomen: Soft and non tender no organomegaly Extremities: No cyanosis,clubbing or edema. Skin: Warm and Dry. Progress Results/Orders Results/Orders Orders - ANOOP JENNINGS PAC Saline Lock (08/24/24 ) Completed Orders - ANOOP JENNINGS PAC Normal Saline 1000ml (Sodium Chloride 10 (08/24/24 12:58) Normal Saline 1000ml (Sodium Chloride 10 (08/24/24 12:58) Ondansetron Inj. (Zofran 4mg/2ml Vial) (08/24/24 12:59) Diazepam Inj (Valium Inj) (08/24/24 13:15) Medications Received in ER Medications (Trade) Dose Ordered Sig/Lukas Route PRN Reason Start Time Stop Time Status Last Admin Dose Admin Sodium Chloride 1,000 ml @ 1,000 mls/hr ONCE STAT IV 08/24/24 12:58 08/24/24 13:57 DC 08/24/24 13:27 1,000 MLS/HR Sodium Chloride 1,000 ml @ 1,000 mls/hr ONCE STAT IV 08/24/24 12:58 08/24/24 13:57 DC 08/24/24 13:27 1,000 MLS/HR (Zofran 4mg/2ml vial) 8 mg ONCE STAT IV 08/24/24 12:59 08/24/24 13:08 DC 08/24/24 13:27 8 MG (Valium inj) 10 mg ONCE STAT IV 08/24/24 13:15 08/24/24 13:18 DC 08/24/24 13:27 10 MG Vital Signs 08/24/24 08/24/24 08/24/24 12:00 12:23 12:23 Temp 97.3 97.3 Pulse 132 125 Resp 20 16 18 B/P (MAP) 125/75 109/85 (93) Pulse Ox 98 97 O2 Flow Rate 0 EKG/XRAY/CT/US/VASC/MRI EKG : Additional Comment EKG interpreted by myself today shows normal sinus rhythm, sinus tachycardia, tachycardic rate at 129 beats per minute., no axis deviation, no ischemia or ST segment elevation. Medical Decision Making Findings Patient is seen today with complaints of fentanyl overdose about 13 hours ago last night around 10 or 11. Patient denies any suicidal or homicidal ideation. Patient states his girlfriend was present and states he blacked out and stopped breathing for about 2 minutes after which she used Narcan nasal spray x2 and he woke up and started breathing again after about 30 seconds. Patient's girlfriend states he did turn a little blue. Patient does admit to significant alcohol use and has been in and out of alcohol recovery for years. Patient states he usually drinks in the morning unless he works but states he does usually have alcohol withdrawal symptoms every morning including elevated heart rate and sometimes a little shaky. Patient states his last drink was last night over 12 hours ago. Patient does admit to nausea currently and states he is usually a little nauseous each morning. Patient has no other concern or complaint at this time. He denies any chest pain or shortness of breath or abdominal pain or vomiting or diarrhea. Patient did receive in the ED today 2 L of normal saline IV, Valium 10 mg IV, Zofran 8 mg IV. Patient is feeling much better. Patient declined admission or declined to speak with child welfare social worker at this time. I advised patient checked himself into alcohol recovery center. Patient voiced understanding. Departure Disposition: HOME / SELF CARE / HOMELESS Impression: Primary Impression: Alcohol dependence Qualified Codes: F10.230 - Alcohol dependence with withdrawal, uncomplicated Additional Impressions: Alcohol abuse Opioid overdose Qualified Codes: T40.2X1A - Poisoning by other opioids, accidental (unintentional), initial encounter Condition: Improved Discharge Instructions: Opioid Overdose Additional Instructions: Patient did receive in the ED today 2 L of normal saline IV, Valium 10 mg IV, Zofran 8 mg IV. Patient is feeling much better. Patient declined admission or declined to speak with child welfare social worker at this time. I advised patient checked himself into alcohol recovery center. Patient voiced understanding. Prescription of Zofran and Librium taper sent to patient pharmacy. To be used as directed. Referrals: NO PRIMARY CARE PROVIDER (PCP) Prescriptions Chlordiazepoxide Hcl (Librium) 25 Mg Capsule 2 CAP PO Q2H PRN PRN for anxiety for 1 Day, #24 CAP 0 Refills Prov: ANOOP JENNINGS 08/24/24 ONDANSETRON ODT 4mg tablet (ONDANSETRON ODT) 4 Mg Tab.rapdis 4 MG PO BID for 21 Days, #42 TAB Prov: ANOOP JENNINGS 08/24/24 Signature Scribe Signature: No scribe Attestation: No scribe ANOOP JENNINGS August 24, 2024 13:03
[2024-08-24] MEDS ORDERED: CHLO25CA10 PO (13:23)
[2024-08-24] MEDS ORDERED: ONDA-243 PO (13:23)
[2024-08-24] MEDS: ondansetron/PF 4mg/2ml inj IV STA (13:27)
[2024-08-24] MEDS: diazepam inj 5 MG/ML inj. IV STA (13:27)
[2024-08-24] MEDS: normal saline 1000ml 1,000 ML IV STA ×2 (13:27)
[2024-08-24 14:37] VITALS: BP 117/84; PULSE 105; RESP 16; TEMP 97.3; O2SAT 100
== END 2024-08-24 14:41 | disposition home or self-care (01) ==
LOC: ER 11:40
DX: T40.2X1A Poisoning by other opioids, accidental (unintentional), initial encounter (principal); F10.230 Alcohol dependence with withdrawal, uncomplicated; R11.0 Nausea; Y90.9 Presence of alcohol in blood, level not specified; Z79.899 Other long term (current) drug therapy; Y92.89 Other specified places as the place of occurrence of the external cause
CPT/HCPCS: 93005; 96361; 96374; 96375; 99284; J2405; J3360; J7030

== ENCOUNTER 2024-08-29 16:03 | Emergency (ER) | payer MEDICAID ==
[~2024-08-29] VITALS: Ht 185.4 cm; Wt 97.7 kg
[2024-08-29 16:22] VITALS: BP 148/84; PULSE 102; RESP 18; O2SAT 97
[2024-08-29] MEDS ORDERED: SULF1TAB49 PO (18:15)
--- NOTE | 2024-08-29 18:15 | Physician Documentation ---
History of Present Illness ~ Chief Complaint: Abscess Stated Complaint: SPIDER BITE Time Seen by MD: 17:20 Primary Medical Doctor: NONE HPI 33-year-old male who presents with three days of pain redness and swelling to his upper thigh, patient reports today he noticed some spontaneous drainage purulent material from the area. Patient reports that the area of pain and swelling decreased in size after spontaneous drainage. Reports no other acute symptoms or concerns including no fever. Tetanus Within 5 Years: No Medication Reconciliation Allergies: Coded Allergies: No Known Allergies (Unverified , 08/29/24) Scheduled Gabapentin (Neurontin), 1 CAP PO QHS Hydroxyzine Hcl (Atarax), 1-2 TAB PO Q8H Naltrexone Hcl (Naltrexone Hcl), 1 TAB PO DAILY Neomy Sulf/Polymyx B Sulf/Hc (Hjxdhyas-Flci-Gq Eye Drops), 1 DROP RIGHTEYE Q6H ONDANSETRON ODT 4mg tablet (Ondansetron Odt), 4 MG PO BID Ondansetron 8mg ODT (Ondansetron Odt), 1 TAB PO Q6H Sulfamethoxazole/Trimethoprim (Bactrim Ds Tablet), 1 TAB PO Q12H Scheduled PRN Chlordiazepoxide HCl (Chlordiazepoxide HCl), 1 CAP PO TID PRN for ALCOHOL WITHDRAWAL Chlordiazepoxide Hcl (Librium), 2 CAP PO Q6H PRN for anxiety Chlordiazepoxide Hcl (Librium), 2 CAP PO Q2H PRN PRN for anxiety ONDANSETRON ODT 4mg tablet (Ondansetron Odt), 1 TAB PO Q6H PRN PRN for nausea/vomiting Miscellaneous Medications Home Med List (No Home Medications), (Reported) Past Medical History Past Medical History: No Pertinent History Past Surgical History: no surgical history Alcohol Use: Alcoholic Lives with: Family Lives In: Home Occupation: employed Review of Systems ROS Abscess to upper thigh as stated above in the HPI, otherwise all systems are reviewed and negative. Physical Exam Vital Signs: Temperature: 98.4, Source: Oral, Heart Rate: 102, Respiratory Rate: 18, BP: 148/84, Pulse Oximetry: 97, Weight: 97.730 Physical Exam VITALS: Reviewed and as above. GENERAL: Alert, nontoxic appearing, no apparent distress. RESPIRATORY: No increased work of breathing, no respiratory distress, speaking in full clear sentences SKIN: Left upper inner thigh 1.5 cm round area of induration and redness with open area of spontaneous purulent drainage, no significant fluctuance Progress Results/Orders Results/Orders Vital Signs 08/29/24 08/29/24 16:22 18:49 Temp 98.4 98.4 Pulse 102 Resp 18 B/P (MAP) 148/84 Pulse Ox 97 Medical Decision Making Findings This 33-year-old male presents with an area of pain and swelling to his left upper thigh, physical exam was consistent with a spontaneously draining abscess, reassuring the area decrease in size as purulent material drained. Area is minimally erythematous with minimal induration and no fluctuance on physical exam. There was no evidence of pain out of proportion with the exam or evidence of deeper tissue infection. Remainder of physical exam was benign. Patient was otherwise well-appearing and appropriate for outpatient follow up. Patient provided home care instructions and return to care precautions and started on a short course of antibiotics. Patient verbalized understanding of return to care precautions. Differential Dx:Considerations: Include: Bacteremia, Cellulitis, Erysipelas, Gas gangrene, Septicemia Departure Disposition: 01 HOME / SELF CARE / HOMELESS Impression: Primary Impression: Abscess Condition: Improved Discharge Instructions: Abscess, Care After Additional Instructions: Take the antibiotics as prescribed. Use warm moist compresses on the area for 20-30 minutes at a time then scrubbed the area to help area drain, do this two to 3 times a day until the pain and swelling goes away. Please follow up with your primary care provider in the next few days for wound recheck. Please return to the emergency department for any new or worsening concerning symptoms including but not limited to if you develop a fever or for worsening pain and swelling to the area. Referrals: NO PRIMARY CARE PROVIDER (PCP) Prescriptions Sulfamethoxazole/Trimethoprim (Bactrim Ds Tablet) 800 Mg-160 Mg Tablet 1 TAB PO Q12H for 5 Days, #10 TAB Prov: ANJEL MCKEON 08/29/24 Education Educated: Patient Educated regarding: diagnosis, treatment, prognosis, need for follow up Signature Scribe Signature: No scribe Attestation: The note accurately reflects work and decisions made by me.NICK Booth 08/30/24 02:24 ANJEL MCKEON August 29, 2024 18:15
[2024-08-29 18:49] VITALS: TEMP 98.4
== END 2024-08-29 18:53 | disposition home or self-care (01) ==
LOC: ER 16:03
DX: L02.416 Cutaneous abscess of left lower limb (principal); F10.90 Alcohol use, unspecified, uncomplicated; Y90.9 Presence of alcohol in blood, level not specified
CPT/HCPCS: 99283

== ENCOUNTER 2024-08-31 11:20 | Emergency (ER) | payer MEDICAID ==
[~2024-08-31] VITALS: Ht 185.4 cm; Wt 95.8 kg
[~2024-08-31 11:20] MED LIST changes: +SULF1TAB49 PO
[2024-08-31 12:41] LABS: BASOPHILS # (AUTO) 0.1 X10'3 (0-0.2); BASOPHILS % (AUTO) 1.4 % (0-1); EOSINOPHILS # (AUTO) 0.1 X10'3 (0-0.9); EOSINOPHILS % (AUTO) 1.9 % (0-6); HEMATOCRIT 38.5 % (42.0-52.0); HEMOGLOBIN 12.4 g/dl (14.0-17.9); LYMPHOCYTES # (AUTO) 1.4 X10'3 (1.1-4.8); LYMPHOCYTES % (AUTO) 31.3 % (21-51); MEAN CORPUSCULAR HGB CONC 32.1 g/dL (33.0-36.5); MEAN CORPUSCULAR VOLUME 81.1 FL (78-98); MEAN PLATELET VOLUME 7.2 FL (7.4-10.4); MONOCYTES # (AUTO) 0.4 X10'3 (0-0.9); MONOCYTES % (AUTO) 8.5 % (2-12); NEUTROPHILS # (AUTO) 2.6 X10'3 (1.8-7.7); NEUTROPHILS % (AUTO) 56.9 % (42-75); PLATELET COUNT 408 X10'3 (140-440); RED BLOOD COUNT 4.75 X10'6 (4.70-6.10); RED CELL DISTRIBUTION WIDTH 14.6 % (11.5-14.5); WHITE BLOOD COUNT 4.5 X10'3 (4.5-11.0)
[2024-08-31] MEDS ORDERED: SULF1TAB45 PO (12:44)
[2024-08-31] MEDS ORDERED: BUPR-480 (12:44)
[2024-08-31] MEDS ORDERED: NALT380S2 (12:44)
--- NOTE | 2024-08-31 12:48 | Physician Documentation ---
History of Present Illness ~ Chief Complaint: Bloody Stools Stated Complaint: BLOOD IN STOOL Time Seen by MD: 11:52 Primary Medical Doctor: NONE Mode of Arrival: POV HPI 33 year old male reports intermittent bloody bowel movements for many years. Denies fever, N/V/D, constipation. Does drink heavily. Denies weakness, LOC, vomiting blood. He normally sees small amounts bright red blood in his stool. Medication Reconciliation Allergies: Coded Allergies: No Known Allergies (Unverified , 08/31/24) Scheduled Gabapentin (Neurontin), 1 CAP PO QHS Hydroxyzine Hcl (Atarax), 1-2 TAB PO Q8H Naltrexone Hcl (Naltrexone Hcl), 1 TAB PO DAILY Neomy Sulf/Polymyx B Sulf/Hc (Hauwwxxw-Jpcx-Tq Eye Drops), 1 DROP RIGHTEYE Q6H ONDANSETRON ODT 4mg tablet (Ondansetron Odt), 4 MG PO BID Ondansetron 8mg ODT (Ondansetron Odt), 1 TAB PO Q6H Sulfamethoxazole/Trimethoprim (Bactrim Ds Tablet), 1 TAB PO Q12H Scheduled PRN Chlordiazepoxide HCl (Chlordiazepoxide HCl), 1 CAP PO TID PRN for ALCOHOL WITHDRAWAL Chlordiazepoxide Hcl (Librium), 2 CAP PO Q6H PRN for anxiety Chlordiazepoxide Hcl (Librium), 2 CAP PO Q2H PRN PRN for anxiety ONDANSETRON ODT 4mg tablet (Ondansetron Odt), 1 TAB PO Q6H PRN PRN for nausea/vomiting Miscellaneous Medications Home Med List (No Home Medications), (Reported) Past Medical History Past Medical History: No Pertinent History Past Surgical History: no surgical history Alcohol Use: Alcoholic Lives with: Family Lives In: Home Occupation: employed Review of Systems All Other Systems at this time: Reviewed and Negative Physical Exam Vital Signs: RN Vital Signs have been reviewed: Yes, Temperature: 98.3, Source: Oral, Heart Rate: 124, Respiratory Rate: 15, BP: 118/69, Pulse Oximetry: 97, Weight: 95.850 Oxygen Flow Rate: 0 Physical Exam HEENT: PERRL, moist oral mucosa, EOMI Pulmonary: No respiratory distress GI: nondistended, soft, nontender, no guarding, no rebound MSK: no deformity Skin: w/d/i, no rash Neuro: alert, nonfocal Psych: normal affect Progress Results/Orders Results/Orders Orders - RICA TORRES MD CMP (08/31/24 11:52) Chlamydia/Gc Pcr (08/31/24 12:13) Urinalysis, Cult If Indicated (08/31/24 12:13) RPR (08/31/24 12:41) Completed Orders - RICA TORRES MD Cbc/Diff (08/31/24 11:52) Vital Signs 08/31/24 08/31/24 08/31/24 11:44 12:34 12:41 Temp 97.6 98.3 Pulse 78 124 Resp 18 20 15 B/P (MAP) 131/72 118/69 (85) Pulse Ox 98 97 O2 Flow Rate 0 Laboratory Tests Test 08/31/24 12:15 White Blood Count 4.5 Red Blood Count 4.75 Hemoglobin 12.4 L Hematocrit 38.5 L Mean Corpuscular Volume 81.1 Mean Corpuscular Hemoglobin 26.0 L Mean Corpuscular Hemoglobin Concent 32.1 L Red Cell Distribution Width 14.6 H Platelet Count 408 Mean Platelet Volume 7.2 L Neutrophils (%) (Auto) 56.9 Lymphocytes (%) (Auto) 31.3 Monocytes (%) (Auto) 8.5 Eosinophils (%) (Auto) 1.9 Basophils (%) (Auto) 1.4 H Neutrophils # (Auto) 2.6 Lymphocytes # (Auto) 1.4 Monocytes # (Auto) 0.4 Eosinophils # (Auto) 0.1 Basophils # (Auto) 0.1 CBC Comment Chemistry Comments Medical Decision Making Findings 33 year old male with painless rectal bleeding. Also requesting generalized STI testing because he had a sexual encounter with someone recently and then shortly thereafter noted a lesion to his medial L thigh that swelled up and then drained pus. Workup was largely unremarkable other than for mild anemia. Counseled the patient that he should follow up with a PCP for further workup and testing and that he may need a colonoscopy. Return precautions were discussed. Diff Dx GI Bleed:Consideration: Include: Blood loss anemia, Diverticulosis, Diverticulitis, Esophageal varicies, Esophagitis, Gastritis, Inflammatory BD, Meckel's diverticulum, PUD Departure Disposition: 01 HOME / SELF CARE / HOMELESS Impression: Primary Impression: Rectal bleeding Condition: Stable Discharge Instructions: Bloody Stools Referrals: NO PRIMARY CARE PROVIDER (PCP) Education Educated: Patient, Family Educated regarding: diagnosis, treatment, prognosis, need for follow up Signature Scribe Signature: . Attestation: . RICA TORRES MD August 31, 2024 12:48
[2024-08-31 12:58] LABS: ALANINE AMINOTRANSFERASE 27 U/L (12-78); ALBUMIN 3.8 G/DL (3.4-5.0); ALKALINE PHOSPHATASE 85 IU/L (46-116); ANION GAP 12 (8-16); ASPARTATE AMINO TRANSFERASE 23 U/L (10-37); BILIRUBIN,TOTAL 0.2 MG/DL (0.1-1.0); BLOOD UREA NITROGEN 4 MG/DL (7-18); BUN/CREATININE RATIO 4.9 (10.0-20.0); CALCIUM 8.5 MG/DL (8.5-10.1); CHLORIDE 105 MMOL/L (99-107); CREATININE 0.81 MG/DL (0.60-1.10); GLUCOSE 112 MG/DL (70-104); POTASSIUM 3.5 MMOL/L (3.5-5.1); SODIUM 142 MMOL/L (135-145); TOTAL CARBON DIOXIDE 25.2 MMOL/L (24-32); TOTAL PROTEIN 7.8 G/DL (6.4-8.2); eCRCL 148 ML/MIN; eGFR > 90 ML/MIN
[2024-08-31 13:00] VITALS: BP 113/71; PULSE 122; RESP 13; TEMP 98.3; O2SAT 98
== END 2024-08-31 13:01 | disposition home or self-care (01) ==
LOC: ER 11:20
DX: K92.1 Melena (principal); F10.90 Alcohol use, unspecified, uncomplicated; Z79.899 Other long term (current) drug therapy; Y90.9 Presence of alcohol in blood, level not specified
CPT/HCPCS: 36415; 80053; 85025; 86592; 99283